=== PATIENT | female | born 1935 | race Caucasian/White ===

== ENCOUNTER → 2023-12-13 18:10 | Outpatient (REF) | payer OTHER, SELFPAY ==
[2023-12-13 20:14] LABS: Urine Albumin Negative (Neg - Trace); Urine Bilirubin Negative (Negative); Urine Character Clear (Clear); Urine Color Yellow; Urine Glucose Negative (Negative); Urine Ketone Negative (Negative); Urine Leukocyte 2+ (Negative); Urine Nitrite Positive (Negative); Urine Occult Blood 1+ (Negative); Urine Urobilinogen Negative (Neg - 1+)
[2023-12-13 20:30] LABS: Urine Calcium Oxalate Crystals Present; Urine Squamous Cell 0-2 /LPF (Few)
[2023-12-13 20:31] LABS: Urine Bacteria Many (Negative); Urine White Cell 80-90 /HPF (0-5)
== END ==
LOC: OLABWHC 18:10
PROVIDERS: ATTENDING PHYSICIAN Internal Medicine Geriatric Medicine
DX: R30.0 Dysuria (principal)
CPT/HCPCS: 81003; 81015; 87086; 87088; 87186

== ENCOUNTER → 2024-01-02 13:20 | Outpatient (REF) | payer OTHER, SELFPAY | LOC: RAD 13:20 | PROVIDERS: ATTENDING PHYSICIAN Physician Assistant Medical; FAMILY PHYSICIAN Physician Assistant | DX: S72.352A Displaced comminuted fracture of shaft of left femur, initial encounter for closed fracture (principal) | CPT/HCPCS: 72190; 73552 ==

== ENCOUNTER → 2024-01-18 10:55 | Outpatient (REF) | payer OTHER, SELFPAY | LOC: RAD 10:55 | PROVIDERS: ATTENDING PHYSICIAN Orthopaedic Surgery Hand Surgery; FAMILY PHYSICIAN Internal Medicine Geriatric Medicine | DX: M19.011 Primary osteoarthritis, right shoulder (principal) | CPT/HCPCS: 73200 ==

== ENCOUNTER → 2024-01-28 09:39 | Outpatient (REF) | payer OTHER, SELFPAY | LOC: RAD 09:39 | PROVIDERS: ATTENDING PHYSICIAN Internal Medicine Critical Care Medicine; FAMILY PHYSICIAN Internal Medicine Geriatric Medicine | DX: J90 Pleural effusion, not elsewhere classified (principal); J92.9 Pleural plaque without asbestos | CPT/HCPCS: 71250 ==

== ENCOUNTER 2024-02-07 06:17 | Inpatient (IN) | payer OTHER, SELFPAY ==
--- NOTE | 2024-01-23 12:43 | CM ---
Patient is scheduled for an elective R Reverse TSA on 02/07/24. Spoke with patient prior to surgery. Introduced role of Orthopedic Navigator. Patient reports that she lives alone in personal care at [facility]. Currently she requires assistance
with bathing and occasionally bed mobility. She ambulates with a rolling walker. She has had VN services. PCP is Dr. Manolo Dillon.
Discussed orthopedic program and post surgical plans. Reviewed anticipated length of stay and assistance that she may need at discharge. Daughter states that patient will need to go to the SNF at [facility] as she will not be able to use her walker and
will need more assistance than personal care can provide.
Patient will complete online education.
Plan: Orthopedic Navigator will be involved in the care of patient after surgery and will reassess discharge needs at that time.
[2024-01-24 13:10] VITALS: BMI 32.1
[2024-01-24 13:38] LABS: Hematocrit 37.6 % (37.0-47.0); Hemoglobin 12.5 g/dL (12.0-16.0); Mean Corp Hgb Conc. 33.2 g/dL (33.0-37.0); Mean Corpuscular Hgb 30.5 pg (27.0-31.0); Mean Corpuscular Volume 91.7 fL (81.0-99.0); Mean Platelet Volume 8.8 fL (7.4-10.4); Platelet Count 258 10^3/uL (130-400); Red Cell Dist. Width 14.9 % (11.5-14.5); White Blood Cell Count 8.7 10^3/uL (4.8-10.8)
[2024-01-24 14:25] LABS: ALT (SGPT) 17 U/L (0-35); AST (SGOT) 24 U/L (14-36); Albumin 4.5 g/dl (3.5-5.0); Alkaline Phosphatase 230 U/L (38-126); Blood Urea Nitrogen 16 mg/dl (7-17); Calcium 10.3 mg/dl (8.4-10.2); Carbon Dioxide 29 mmol/L (22-30); Chloride 101 mmol/L (98-107); Estimated Creatinine Clearance 57 ml/min; Glucose 107 mg/dl (70-99); Potassium 4.2 mmol/L (3.5-5.1); Sodium 137 mmol/L (135-145); Total Bilirubin 0.6 mg/dl (0.2-1.3); Total Protein 7.3 g/dl (6.3-8.2); eGFR > 60.00
[2024-01-24 15:27] VITALS: BMI 32.1
[2024-01-25 09:25] LABS: Glycohemoglobin (HgbA1c) 6.6 % (4.0-5.6)
[2024-02-07] VITALS (16 sets, daily range): BP systolic 94–155; BP diastolic 54–97; PULSE 86; O2SAT 91; BMI 32.1
[2024-02-07 10:22] LABS: Glucose - Point of Care 103 mg/dl (70-99)
[2024-02-07] MEDS: BACTROBAN NASAL 1 GRAM NASAL (10:51)
[2024-02-07] MEDS: TYLENOL 1000 MG PO (10:51)
[2024-02-07] MEDS: NORMOSOL-R 1000 IV (10:53)
--- NOTE | 2024-02-07 11:29 | PTCARENOTE ---
RN spoke to Izabela Warren, Ortho Navigator regarding changing the platform of the walker to the opposite side. Izabela checked with PT and they will be able to to do this. RN communicated this information to the patient's daughter Janis. Janis will bring
the platform walker back to the hospital when her mother is admitted to the Orthopedic unit.
--- NOTE | 2024-02-07 13:57 | PTCARENOTE ---
Patient received from the O.R on simple mask, she verbalized she felt her breathing is Labor. Lung bases with rales bilaterally with left base 1/2 up. Patient now on 4L 94%
[2024-02-07 14:00] LABS: Glucose - Point of Care 146 mg/dl (70-99)
[2024-02-07] MEDS: NOVOLOG FLEXPEN-MODERATE RESISTANCE SC ×2 (14:16)
[2024-02-07] MEDS: LASIX 5 MG IV (14:18)
--- NOTE | 2024-02-07 14:41 | SUR.PHASEI ---
Dr Means updated at 1400 with results of glucose and assess update, rales at right base and 1/3 on left. patient normally talkes lasix - has been on hold. Dr Means came to bedside and lasix 5mg given IV at 1418/
[2024-02-07] MEDS: TYLENOL 650 MG PO ×3 (14:59→20:35)
[2024-02-07] MEDS: TYLENOL PO ×2 (15:58→17:46)
--- NOTE | 2024-02-07 16:06 | SUR.PHASEI ---
pacu addendum - Claudine Sandoval updated with assessment with bilateral rales, no lasix ' for a few days' per patient. Updated to Dr Means's order - will stop IV fluids, comfortable now with O2 on - no pain, sitting in high fowlers.
--- NOTE | 2024-02-07 16:07 | PTCARENOTE ---
1520: Patient arrived to 2 south from PACU. Full head to toe assessment completed. Neurovascular assessment completed on RUE. Scant amount of drainage noted on dressing. Ecchymosis noted to upper inner arm. Patient's RUE in sling non-weightbearing
status maintained. Patient on 4L NC with SpO2 greater than 92%. Fluids capped when patient arrived to floor. Call franks within reach and bed in lowest position. Daughter at bedside. PT/OT at bedside.
[2024-02-07 16:08] LABS: NT-proBNP 184 pg/ml
[2024-02-07 16:40] LABS: Glucose - Point of Care 174 mg/dl (70-99)
[2024-02-07] MEDS: LASIX IV (16:42)
[2024-02-07] MEDS: AMARYL PO (17:15)
[2024-02-07] MEDS: ZOLOFT 50 MG PO (17:33)
[2024-02-07] MEDS: ASPIRIN 325 MG PO (17:33)
[2024-02-07] MEDS: AMARYL 2 MG PO (17:34)
[2024-02-07] MEDS: SYNTHROID PO (17:44)
[2024-02-07] MEDS: NOVOLOG FLEXPEN-MODERATE RESISTANCE 1 UNITS SC (18:08)
[2024-02-07] MEDS: BACTROBAN 2% OINTMENT 1 APPLIC NASAL (20:34)
[2024-02-07] MEDS: ANCEF 5 IV (20:34)
[2024-02-07] MEDS: TORADOL 10 MG IV (20:35)
[2024-02-07] MEDS: NEURONTIN 300 MG PO (20:36)
[2024-02-07] MEDS: LIPITOR 40 MG PO (20:36)
[2024-02-07] MEDS: MELATONIN 3 MG PO (20:36)
[2024-02-07] MEDS: MIRAPEX 0.5 MG PO (20:36)
[2024-02-07] MEDS: FLUSH (NSS) 3 FLUSH IV (20:39)
[2024-02-07] MEDS: SENOKOT PO (20:55)
[2024-02-07] MEDS: COLACE PO (20:55)
[2024-02-07 21:21] LABS: Glucose - Point of Care 280 mg/dl (70-99)
[2024-02-07] MEDS: DILAUDID 4 MG PO (22:29)
[2024-02-07] MEDS: KLONOPIN 0.125 MG PO (22:29)
[2024-02-07] MEDS: ZOFRAN 4 MG IV (23:33)
[2024-02-07] MEDS: FLUSH (NSS) 2 FLUSH IV ×2 (23:33→23:47)
[2024-02-07] MEDS: DILAUDID 0.5 MG IV (23:45)
[2024-02-07] MEDS: FLUSH (NSS) 1 FLUSH IV (23:48)
[2024-02-08] MEDS: TYLENOL PO ×2 (00:34→10:39)
[2024-02-08] MEDS: ANCEF 5 IV (03:07)
[2024-02-08] MEDS: TYLENOL 650 MG PO (03:07)
[2024-02-08 05:53] VITALS: BMI 32.3
--- NOTE | 2024-02-08 06:29 | DOWNTIME ---
There was a [employer] Lead Downtime on 02/08/2024 from 0100 to 02/08/2024 at 0322. Downtime documentation of patient's care, including medication administrations, has been reconciled in the electronic record per guidelines. Refer to the
patient's paper chart under the miscellaneous tab to see printed paper medication records and downtime forms.
[2024-02-08 07:35] VITALS: BP 117/67
[2024-02-08 07:56] LABS: Glucose - Point of Care 173 mg/dl (70-99)
--- NOTE | 2024-02-08 08:23 | CM ---
Reviewed chart and held rounds with PT, OT and nursing. Patient admitted as planned for elective R Reverse TSA. Met with patient at bedside. Confirmed information previously obtained for case management assessment and discussed discharge plans. The
plan is for patient to go to to a SNF for rehab. [facility].
Referral and completed PASRR were sent to [facility] through [employer]. Per Soo in admissions, they have a bed and can accept patient today. [facility] . Attending: Eugenie;
Report: [phone]

Call placed to [facility] to obtain precert; spoke with Tasha. Clinical provided and auth received fro transfer to [facility], skilled level of care 02/07 through 02/13; next review date 02/13; auth# [id number]. Auth for Acute Care to transport via stretcher:
[id number]. Message was left for Soo at [facility] with authorization information.
Medical necessity and transport forms completed.
[2024-02-08] MEDS: ASPIRIN 325 MG PO (08:42)
[2024-02-08] MEDS: AMARYL 2 MG PO (08:42)
[2024-02-08] MEDS: MYRBETRIQ EXTENDED RELEASE 25 MG PO (08:42)
[2024-02-08] MEDS: SENOKOT 17.1999999999999993 MG PO (08:43)
[2024-02-08] MEDS: COLACE 100 MG PO (08:43)
[2024-02-08] MEDS: SYNTHROID 75 MCG PO (08:43)
[2024-02-08] MEDS: ZOLOFT 50 MG PO (08:43)
[2024-02-08] MEDS: TORADOL 10 MG IV (08:44)
[2024-02-08] MEDS: LASIX 20 MG IV (08:45)
[2024-02-08] MEDS: NOVOLOG FLEXPEN-MODERATE RESISTANCE 1 UNITS SC (08:46)
--- NOTE | 2024-02-08 10:47 | W.PN.ORTHO ---
Today's Communication / Plan
-
d/c
Assessment
.
Distal Motor Intact: Yes
Dressing:
Clean, dry and intact.
Plan
.
Surgery / Date: R [place] 02/07/24
Activity:
Out of bed.
PT/OT
Discharge Plan: SNF
Subjective
.
.:
Patient resting comfortably.
Vital Signs and Labs
.
Vital Signs and Labs:
Lab Results
01/24/24 12:45
01/24/24 12:45
Temp Pulse Resp BP Pulse Ox
97.4 F 70 16 117/67 96
02/08/24 07:35 02/08/24 08:45 02/08/24 07:35 02/08/24 08:45 02/08/24 07:35
Non-invasive Hgb result: 12.1
Physical Exam
-
HEENT: No pallor, cyanosis, or jaundice. Throat clear.
NECK: Supple. No JVD.
RESPIRATORY: Lungs clear to auscultation-
CVS: S1, S2 normal. RRR.� No murmur, rub or gallop.
ABDOMEN: Soft, non-tender. No distension. BS+/normal.
EXTREMITIES: strength equal, no calf pain with palpation
CREDIT UNION FIELD EXAMINER: AOx3. No focal deficits. actuarial internship grossly intact
--- NOTE | 2024-02-08 10:48 | W.DS.TRANS ---
DC Summary - Home Connect Lpn
-
Discharge Instructions:
Sleep Apnea Risk Low
Discharge Diagnosis/Procedures R Reverse TSA Dr. Delgado 02/07/24
Diet Diabetic, Carb Controlled
Activity With Walker,With assistance
Additional Activity Fall Precautions-NWB RUE
Driving Restrictions No driving
Blood Work bedside glucose monitoring AC HS
Instructions:
Stand-Alone Forms: Total Shoulder Replacement D/C
Changes to Home Medications: Yes
Discharge Medications:
DC Medications w/original date entered in [employer]
pramipexole 0.25 mg tablet 0.5 mg PO HS Neurological Condition 10/18/18
sertraline 50 mg tablet 50 mg PO DAILY Depression 10/18/18
levothyroxine 75 mcg tablet (Synthroid) 75 mcg PO DAILY Thyroid 06/07/23
amlodipine 2.5 mg tablet 2.5 mg PO DAILY Blood Pressure 08/18/23
aspirin 81 mg chewable tablet 81 mg PO DAILY Blood Clot Prevention/Tx 08/18/23
polyethylene glycol 3350 17 gram oral powder packet (Miralax) 17 g PO DAILY PRN constipation 08/30/23
amoxicillin 500 mg capsule 2,000 mg PO DAILY PRN PRIOR TO DENTAL PROCEDURE 11/01/23
ascorbic acid (vitamin C) 500 mg tablet 500 mg PO BID Supplement 11/01/23
atorvastatin 40 mg tablet 40 mg PO HS High Cholesterol 11/01/23
clonazepam 0.125 mg disintegrating tablet 0.125 mg PO Q8H PRN anxiety 11/01/23
glimepiride 2 mg tablet 2 mg PO DAILY Diabetes 11/01/23
methyl salicylate 15 %-menthol 10 % topical cream (Muscle Rub) 1 applic topical Q6H PRN shoulder pain 11/01/23
potassium chloride 20 mEq oral packet (Klor-Con) 20 meq PO BID Electrolyte Repletion 11/01/23
melatonin 3 mg tablet 3 mg PO HS Sleep 01/24/24
mirabegron 25 mg tablet,extended release 24 hr (Myrbetriq) 25 mg PO DAILY Urinary Issue 01/24/24
xntycocdcnor-yuhbggzc-gmvuqi tablet 1 tab PO DAILY Supplement 01/24/24
mupirocin 2 % topical ointment 1 applic topical BID infection prevention #1 tube 01/24/24
vit C 250 mg-vit E 90 mg-zinc 40 mg-copper 1 bv-gzvqda-walgxn capsule (PreserVision AREDS-2) 1 tab PO BID Supplement 01/24/24
white petrolatum-mineral oil topical cream 1 applic topical BID dry skin 01/24/24
Saccharomyces boulardii 250 mg capsule (Florastor) 250 mg PO BID #1 cap 02/08/24
acetaminophen 325 mg capsule (Tylenol) 650 mg (2 x 325 mg) PO QID #2 caps 02/08/24
aspirin 325 mg tablet 325 mg PO DAILY blood clot prevention #1 tab 02/08/24
docusate sodium 100 mg capsule (Colace) 100 mg PO BID stool softner #1 cap 02/08/24
doxycycline hyclate 100 mg capsule 100 mg PO BID infection prevention #10 caps 02/08/24
furosemide 20 mg tablet (Lasix) 20 mg PO DAILY #1 tab 02/08/24
gabapentin 300 mg capsule 300 mg PO HS sleep/pain #10 caps 02/08/24
hydromorphone 2 mg tablet 2 - 4 mg (1 - 2 x 2 mg) PO Q6H PRN 1 moderate pain, 2 severe #30 tabs 02/08/24
insulin aspart U-100 100 unit/mL (3 mL) subcutaneous pen (Novolog FlexPen U-100 Insulin aspart) 1 sliding scale dose SC DIRECTED #1 mL 02/08/24
magnesium hydroxide 400 mg/5 mL oral suspension (Milk of Magnesia) 30 ml PO HS PRN Constipation #1 mL 02/08/24
sennosides 8.6 mg tablet (Senokot) 17.2 mg (2 x 8.6 mg) PO BID laxative #2 tabs 02/08/24
Home Medication Changes
doxycycline hyclate 100 mg capsule 100 mg PO BID infection prevention #10 caps 02/08/24�
Pending Results: No
[2024-02-08 11:23] LABS: Glucose - Point of Care 224 mg/dl (70-99)
== END 2024-02-08 12:10 | DRG 483 ==
LOC: 2 SOUTH 06:17
PROVIDERS: Physician Assistant Medical; ADMITTING PHYSICIAN Orthopaedic Surgery Hand Surgery; FAMILY PHYSICIAN Internal Medicine Geriatric Medicine
PROC: 0RRJ0JZ Replacement of Right Shoulder Joint with Synthetic Substitute, Open Approach (ICD-10-PCS; 2024-02-07)
DX: M19.011 Primary osteoarthritis, right shoulder (principal); M75.101 Unspecified rotator cuff tear or rupture of right shoulder, not specified as traumatic; Z96.643 Presence of artificial hip joint, bilateral; R26.2 Difficulty in walking, not elsewhere classified
CPT/HCPCS: 36415; 73020; 80053; 82962; 83036; 83880; 85027; 87070; 93005; 97163; 97166; C1713; C1776

== ENCOUNTER → 2024-02-15 10:36 | Outpatient (REF) | payer OTHER, SELFPAY ==
[2024-02-15 11:28] LABS: Hematocrit 32.1 % (37.0-47.0); Hemoglobin 10.1 g/dL (12.0-16.0); Mean Corp Hgb Conc. 31.5 g/dL (33.0-37.0); Mean Corpuscular Hgb 30.6 pg (27.0-31.0); Mean Corpuscular Volume 97.3 fL (81.0-99.0); Mean Platelet Volume 8.8 fL (7.4-10.4); Platelet Count 315 10^3/uL (130-400); Red Cell Dist. Width 15.6 % (11.5-14.5)
[2024-02-15 11:50] LABS: Glycohemoglobin (HgbA1c) 6.5 % (4.0-5.6)
[2024-02-15 12:03] LABS: ALT (SGPT) 18 U/L (0-35); AST (SGOT) 22 U/L (14-36); Albumin 3.6 g/dl (3.5-5.0); Alkaline Phosphatase 172 U/L (38-126); Blood Urea Nitrogen 16 mg/dl (7-17); Calcium 9.4 mg/dl (8.4-10.2); Carbon Dioxide 27 mmol/L (22-30); Chloride 106 mmol/L (98-107); Glucose 121 mg/dl (70-99); Magnesium 1.9 mg/dl (1.6-2.3); Potassium 4.2 mmol/L (3.5-5.1); Sodium 137 mmol/L (135-145); Total Bilirubin 0.7 mg/dl (0.2-1.3); eGFR > 60.00
[2024-02-15 12:17] LABS: Free T4 0.98 ng/dl (0.78-2.19)
[2024-02-15 12:31] LABS: TSH 1.35 uIU/ml (0.47-4.68)
== END ==
LOC: OLABWHC 10:36
PROVIDERS: ATTENDING PHYSICIAN Internal Medicine
DX: I50.33 Acute on chronic diastolic (congestive) heart failure (principal); Z96.611 Presence of right artificial shoulder joint; D64.9 Anemia, unspecified; E11.40 Type 2 diabetes mellitus with diabetic neuropathy, unspecified
CPT/HCPCS: 36415; 80053; 83036; 83735; 84439; 84443; 85027

== ENCOUNTER 2024-03-08 04:37 | Inpatient (IN) | payer OTHER, SELFPAY ==
[2024-03-07 23:40] VITALS: BP 144/77
[2024-03-08] VITALS (9 sets, daily range): BP systolic 120–166; BP diastolic 66–87; PULSE 87–89; O2SAT 97–98; BMI 31.6
--- NOTE | 2024-03-08 00:58 | ED.GENMED ---
History of Present Illness
General
Chief Complaint: Fall
Source: patient
Exam Limitations: none
Time Seen by Provider: 03/08/24 00:50
Nursing documentation reviewed up to this point in time: agreed with
Travel History
Have you had any contact with someone who has COVID-19?: No
Do you have any symptoms of coronavirus? Fever > 100 degrees, chills, cough, shortness of breath, sore throat, loss of taste or smell, muscle aches, or headache?: No
History of Present Illness
History of Present Illness:
Patient is an 89-year-old female with past medical history of CHF hypertension hyperlipidemia arthritis recent shoulder replacement, diabetes from [facility] who presents to the ER for evaluation. Patient apparently had an unwitnessed fall
several hours ago. She tells me she was trying to walk to the bathroom and fell. She reports she has felt very weak and not well for a while. She tells me she wants to sleep all the time. She has had a cough. She denies any shortness of breath.
She did hit the back of her head but denies loss of conscious. She tells me she is not on blood thinners.
Patient is status post right reverse total shoulder arthroplasty February 06
Past History
Past History
ED Past Medical History: COPD, Fibromyalgia, HTN, Hypercholesterolemia, NIDDM, Hypothyroidism, Psychiatric (anxiety), Other (Degenerative osteoarthritis, Migraines, back pain, UTI, Macular degeneration, ) and Other (migraines, mac degeneation, OA)
ED Past Surgical History: Appendectomy, Cholecystectomy, Orthopedic (Left and right knee replacement, Back surgery, right and left total hip replacement. Left leg femur repair), Tonsilectomy and Other (Lymphnode resection of neck. )
Social History
Tobacco: Former smoker
Alcohol: None
Personal:
Living: custodial ([facility])
Review of Systems
Review of Systems
Allergies reviewed?: Yes
Other source history: family and ambulance crew
All Other Systems: ROS reviewed and negative except as documented in HPI and ROS
Constitutional: Reports fatigue
EENT: Reports no symptoms
Respiratory: Reports cough; Denies trouble breathing
Cardiac: Reports no symptoms
ABD/GI: Reports no symptoms
Musculoskeletal: Reports no symptoms
Skin: Reports no symptoms
Neurological: Reports no symptoms
Psychiatric: Reports no symptoms
Phy Exam
General Physical Exam
General Presentation: no apparent distress
General age: appears stated age
General Skin: warm
General Habitus: elderly
General Mental: alert
General Hydration: dry mucous membranes
Cardiovascular Exam
Cardiovascular Exam: regular rate/rhythm, no murmur and normal peripheral pulses
Pulmonary Exam
Pulmonary Exam: lungs clear and other (+ cough )
Neurological Exam
Neurological Exam: alert
Musculoskeletal Exam
Musculoskeletal Exam: full ROM and other (right anterior shoulder with steri strip in place no surrounding erythema )
Skin Exam
Skin Exam: normal color and warm/dry
Psychiatric Exam
Psychiatric Exam: normal mood/affect
Course
Orders/Labs/Results
Orders:
Orders
03/08/24 00:57
Cardiac Monitoring- Treatment ONCE
IV Insert/Care/Rem.- Treatment PRN
Straight cath- Treatment ONCE
03/08/24 00:58
Electrocardiogram (*1) Urgent
Reason for Study: Other
Other Reason for Exam: sepsis
EKG- Treatment ONCE
CR Chest - 2 Views Urgent
Comment:
Reason For Exam: cough
03/08/24 02:15
COVID-19 Antigen Urgent
Source: Nasal Swab
Complete Blood Count/With Diff Urgent
Comprehensive Metabolic Panel Urgent
Influenza A+B Rapid Molecular Urgent
ELAINE Source: Nasal Swab
Specimen Description:
03/08/24 02:30
CT Head W/o Iv Contrast Urgent
Comment:
Reason For Exam: unwitnessed fall
03/08/24 02:40
Lactic Acid Q4H
Comment: CANCEL 2nd LACTIC ACID IF 1st LACTIC ACID IS LESS THAN 2
Blood Culture Q30M
ELAINE Source: Blood/Venous
Specimen Description:
Blood Culture Q30M
ELAINE Source: Blood/Venous
Specimen Description:
03/08/24 03:17
0.9% Sodium Chloride 1000 ml [Nss] 1,000 ml IV Wide Open mls/hr
03/08/24 04:03
Admit/Transfer Patient As Directed
Co-Sign Provider:
Level of Care: Inpatient admission
Assign to:: Medical/Surgical
Physician / Group: doug
Diagnosis: uti
Reason for Hospitalization: uti
Expected length of stay greater than two midnights?: Yes
ELOS- Estimated Length of Stay in days: 2
I certify the patient meets the requirements for IP care: Yes
03/08/24 04:04
Code Status As Directed
Resuscitation Status: Do not resuscitate
Reached after discussion with pt or family/Healthcare POA: Yes
DNR Bracelet Application ONCE
03/08/24 06:00
Levothyroxine [Synthroid] 75 mcg PO DAILY @ 0600
03/08/24 06:24
Clonazepam [Klonopin] 0.125 mg PO Q8H PRN
Dextrose 50%-Water [Dextrose 50% Syringe] 12.5 grams IV [id number] PRN
Glucagon [GlucaGen] 1 mg IM PRN PRN
Magnesium Hydroxide [Milk of Magnesia] 30 ml PO HS PRN
Polyethylene Glycol Powder [Miralax] 17 grams PO DAILY PRN
03/08/24 06:24
Activity As Directed
Activity Level: As Tolerated
Bedside Glucose Monitoring As Directed
Frequency: AC&HS
Additional Instructions:: Change to q6h if pt on TPN, tube feeding or not eating
Vital Signs As Directed
Frequency: Per unit guidelines
DX Deep Vein Thrombosis Video Routine
03/08/24 07:00
CefTRIAXone [Rocephin] 1,000 mg IV Q24H
03/08/24 07:30
Insulin Aspart Corrective Low [Novolog Flexpen-Low Resistance] See Protocol SC AC
03/08/24 08:00
Acetaminophen [Tylenol] 650 mg PO QID
Amlodipine [Norvasc] 2.5 mg PO DAILY
Ascorbic Acid [Vitamin C] 500 mg PO BID
Aspirin Chewable [Low Strength Aspirin] 81 mg PO DAILY
Docusate Sodium [Colace] 100 mg PO BID
Heparin 5,000 units SC Q12
Multivitamin [Theragran] 1 tablet PO DAILY
Petrolatum/Mineral Oil [Hydrophor] 1 applic TOPICAL BID
Saccharomyces Boulardii [Florastor] 250 mg PO BID
Sennosides [Senokot] 17.2 mg PO BID
Sertraline HCl [Zoloft] 50 mg PO DAILY
Vit C/Vit E/Lutein/Min/[place]-3 [Ocuvite Softgel] 1 cap PO BID
03/08/24 10:16
Urinalysis Reflex To Culture Urgent
Comment: RECOLLECT
Urine Microscopic Reflex Cult Urgent
Urine Culture Urgent
ELAINE Source: U
Specimen Description:
Obtained by: Random
03/08/24 22:00
Atorvastatin [Lipitor] 40 mg PO HS
Gabapentin [Neurontin] 300 mg PO HS
Pramipexole [Mirapex] 0.5 mg PO HS
03/09/24 06:00
Complete Blood Count/With Diff IN AM
Comprehensive Metabolic Panel IN AM
Glycohemoglobin (HgbA1c) IN AM
Abnormal Lab Results
03/08/24
02:15
WBC 11.0 H 10^3/uL
(4.8-10.8)
RBC 3.58 L 10^6/uL
(4.20-5.40)
Hgb 11.0 L g/dL
(12.0-16.0)
Hct 32.7 L %
(37.0-47.0)
Abs Immat Gran (auto) 0.2 H 10^3/uL
(0-0.05)
Absolute Neuts (auto) 8.3 H 10^3/uL
(1.4-6.5)
Absolute Monos (auto) 1.1 H 10^3/uL
(0.1-0.6)
Immature Gran % 1.4 H %
(0-0.5)
Neutrophils % 75.7 H %
(42.2-75.2)
Lymphocytes % 11.6 L %
(20.5-51.1)
Monocytes % 10.2 H %
(1.7-9.3)
Sodium 132 L mmol/L
(135-145)
Chloride 95 L mmol/L
(98-107)
BUN 18 H mg/dl
(7-17)
Creatinine 0.4 L mg/dL
(0.6-1.0)
Glucose 133 H mg/dl
(70-99)
AST 43 H U/L
(14-36)
ALT 39 H U/L
(0-35)
Alkaline Phosphatase 263 H U/L
(38-126)
03/08/24 02:15
03/08/24 02:15
Vital Signs
Initial and Last Documented VS:
Initial Vital Signs
Temp Pulse Resp BP Pulse Ox
98.4 F 95 18 144/77 87
03/07/24 23:40 03/07/24 23:40 03/07/24 23:40 03/07/24 23:40 03/07/24 23:40
Last Documented Vital Signs
Temp Pulse Resp BP Pulse Ox
97.4 F 86 20 132/82 96
03/08/24 13:13 03/08/24 13:13 03/08/24 13:13 03/08/24 13:13 03/08/24 13:13
Research Associate Molecular Biology consulted with Physician
Research Associate Molecular Biology consulted with physician?: Yes
Name of Physician Consulted: Jignesh
MDM/Problems Addressed
Differential Diagnosis Includes:
Not limited to UTI weakness head injury
MDM/Problems Addressed:
As per daughter Pt normally lives at [facility], was in Rehab after right shoulder replacement , now back in personal chair at [facility]. Daughter reports pt has gotten progressively weaker over past several days. had cough had recent clear Chest
xray but was found to have UTI by urology and placed on Macrobid.
Patient is awake alert. She is able to give history she tells me she has not felt good in a while has had a cough. Denies any head injury no acute findings on CT head patient with clear lungs not hypoxic however audible cough no acute findings on
chest x-ray. White count : 11.0 stable hemoglobin; 18 creatinine 0.4, will check urine however will require admission for weakness frequent fall
*Critical Care Note
Total Time (30-74mins, 75-104mins- exclusive of procedures): Not Applicable
ED Attending Note
-
Portions of this chart may have been created with voice recognition software.� Occasional wrong word or��sound alike� substitutions may have occurred due to the inherent limitations of voice recognition software.
Discharge Plan
Departure
Patient Disposition: Admit
Date of Disposition: 03/08/24
Time of Disposition: 03:24
Admit to: Med/Surg
Admit to doctor: hospitalist
Presentation/result/management discussed w/ accepting MD/DO: Hospitalist
Patient with high blood pressure during this ER visit?: No
Condition: Fair
Covid-19: Negative COVID-19
Discharge Problem:
Weakness
Interventions
Interventions:
*Risk Screen - Suicide Last Done: 03/07/24 23:40
*General Assessment Last Done: 03/07/24 23:40
*Neglect/Abuse Screening Last Done: 03/07/24 23:40
ED- Fall Risk Assessment Last Done: 03/08/24 03:21
*ED COVID-19 Vaccine History Last Done: 03/07/24 23:40
*Nursing Disposition Last Done: 03/08/24 12:59
ED-Musculoskeletal Assessment Last Done: 03/08/24 03:23
ED- Neurological Assessment Last Done: 03/08/24 03:22
ED-Skin Assessment Last Done: 03/08/24 03:21
Discharge Date and Time
Discharge Date/Time: 03/08/24 12:59
[2024-03-08 02:21] LABS: % Basophils 0.5 % (0-2); % Eosinophils 0.6 % (0-6); % Immature Granulocytes 1.4 % (0-0.5); % Lymphocytes 11.6 % (20.5-51.1); % Monocytes 10.2 % (1.7-9.3); % Neutrophils 75.7 % (42.2-75.2); Absolute Basophils 0.1 10^3/uL (0-0.2); Absolute Eosinophils 0.1 10^3/uL (0-0.7); Absolute Immature Granulocytes 0.2 10^3/uL (0-0.05); Absolute Lymphocytes 1.3 10^3/uL (1.2-3.4); Absolute Monocytes 1.1 10^3/uL (0.1-0.6); Absolute Neutrophils 8.3 10^3/uL (1.4-6.5); Hematocrit 32.7 % (37.0-47.0); Mean Corp Hgb Conc. 33.6 g/dL (33.0-37.0); Mean Corpuscular Hgb 30.7 pg (27.0-31.0); Mean Corpuscular Volume 91.3 fL (81.0-99.0); Mean Platelet Volume 8.8 fL (7.4-10.4); Nucleated Red Blood Cells % 0 %; Platelet Count 324 10^3/uL (130-400); Red Blood Cell Count 3.58 10^6/uL (4.20-5.40); Red Cell Dist. Width 14.3 % (11.5-14.5)
[2024-03-08 02:33] LABS: ALT (SGPT) 39 U/L (0-35); AST (SGOT) 43 U/L (14-36); Albumin 3.9 g/dl (3.5-5.0); Alkaline Phosphatase 263 U/L (38-126); Blood Urea Nitrogen 18 mg/dl (7-17); Calcium 9.9 mg/dl (8.4-10.2); Carbon Dioxide 24 mmol/L (22-30); Chloride 95 mmol/L (98-107); Glucose 133 mg/dl (70-99); Potassium 3.6 mmol/L (3.5-5.1); Sodium 132 mmol/L (135-145); Total Bilirubin 0.6 mg/dl (0.2-1.3); Total Protein 6.8 g/dl (6.3-8.2); eGFR > 60.00
[2024-03-08 02:41] LABS: COVID-19 Antigen Negative (Negative)
[2024-03-08 03:03] LABS: Lactic Acid 0.9 mmol/L (0.7-2.0)
[2024-03-08] MEDS: NSS 1000 IV (03:32)
--- NOTE | 2024-03-08 04:06 | HPS.HSE ---
Family Physician
-
Family Physician: Manolo Dillon
Chief Complaint
-
weakness
History of Present Illness
89-year-old female past medical history of HFpEF, pericardial effusion, hypertension, hyperlipidemia, diabetes, diabetic neuropathy, macular degeneration, hypothyroidism, recurrent pleural effusion, osteoarthritis, obesity, fibromyalgia, restless
leg syndrome, anxiety, migraines presenting from [facility] for unwitnessed fall several hours ago. She was tried to walk to the bathroom and fell. She did hit the back of her head but denies loss of consciousness. She has been feeling very
weak and wants to sleep. She has been complaining of urinary frequency for the past few days and saw her urologist who prescribed her Macrobid which she started taking yesterday. She usually gets some diarrhea after taking antibiotic which
happened yesterday.
She has a cough which she has had for few weeks. Denies any shortness of breath. Denies any chest pain.
She sometimes uses oxygen at home but not very frequently.
She denies smoking or alcohol use.
Medical History
Past Medical History
Past Medical History: Reports Other (HFpEF, pericardial effusion, hypertension, hyperlipidemia, diabetes, diabetic neuropathy, macular degeneration, hypothyroidism, recurrent pleural effusion, osteoarthritis, obesity, fibromyalgia, restless leg
syndrome, anxiety, migraines)
Past Surgical History: Reports Other (Left total hip arthroplasty, right total hip arthroplasty, left femur fracture ORIF, right total knee arthroplasty, cholecystectomy, left total knee arthroplasty, appendectomy, lumbar surgery, lymph node
dissection of neck, right wrist fracture repair)
Social History
Tobacco: Non-smoker
Alcohol: None
Drug: None
Family History
Family History: Not pertinent
Allergies / Home Medications
Allergies reflects when Allergies were last updated in [facility].
Home Medications with original date entered in [facility]
Allergy/Medication List:
Allergies
Allergy/AdvReac Type Severity Reaction Status Date / Time
morphine Allergy Unknown Unknown Verified 02/07/24 10:11
amoxicillin [From Augmentin] Allergy Unknown Verified 02/07/24 10:11
clavulanic acid Allergy Unknown Verified 02/07/24 10:11
[From Augmentin]
risedronate sodium Allergy Unknown Verified 02/07/24 10:11
[From Actonel]
Sulfa (Sulfonamide Allergy Rash, Verified 02/07/24 10:11
Antibiotics) itching
Home Medications
pramipexole 0.25 mg tablet 0.5 mg PO HS Neurological Condition 10/18/18
sertraline 50 mg tablet 50 mg PO DAILY Depression 10/18/18
levothyroxine 75 mcg tablet (Synthroid) 75 mcg PO DAILY Thyroid 06/07/23
amlodipine 2.5 mg tablet 2.5 mg PO DAILY Blood Pressure 08/18/23
aspirin 81 mg chewable tablet 81 mg PO DAILY Blood Clot Prevention/Tx 08/18/23
polyethylene glycol 3350 17 gram oral powder packet (Miralax) 17 g PO DAILY PRN constipation 08/30/23
amoxicillin 500 mg capsule 2,000 mg PO DAILY PRN PRIOR TO DENTAL PROCEDURE 11/01/23
ascorbic acid (vitamin C) 500 mg tablet 500 mg PO BID Supplement 11/01/23
atorvastatin 40 mg tablet 40 mg PO HS High Cholesterol 11/01/23
clonazepam 0.125 mg disintegrating tablet 0.125 mg PO Q8H PRN anxiety 11/01/23
glimepiride 2 mg tablet 2 mg PO DAILY Diabetes 11/01/23
methyl salicylate 15 %-menthol 10 % topical cream (Muscle Rub) 1 applic topical Q6H PRN shoulder pain 11/01/23
potassium chloride 20 mEq oral packet (Klor-Con) 20 meq PO BID Electrolyte Repletion 11/01/23
melatonin 3 mg tablet 3 mg PO HS Sleep 01/24/24
mirabegron 25 mg tablet,extended release 24 hr (Myrbetriq) 25 mg PO DAILY Urinary Issue 01/24/24
rreftiehbkqt-ywyuuxeb-gzpkkw tablet 1 tab PO DAILY Supplement 01/24/24
mupirocin 2 % topical ointment 1 applic topical BID infection prevention #1 tube 01/24/24
vit C 250 mg-vit E 90 mg-zinc 40 mg-copper 1 lz-pftvly-hjjejl capsule (PreserVision AREDS-2) 1 tab PO BID Supplement 01/24/24
white petrolatum-mineral oil topical cream 1 applic topical BID dry skin 01/24/24
Saccharomyces boulardii 250 mg capsule (Florastor) 250 mg PO BID #1 cap 02/08/24
acetaminophen 325 mg capsule (Tylenol) 650 mg (2 x 325 mg) PO QID #2 caps 02/08/24
aspirin 325 mg tablet 325 mg PO DAILY blood clot prevention #1 tab 02/08/24
docusate sodium 100 mg capsule (Colace) 100 mg PO BID stool softner #1 cap 02/08/24
doxycycline hyclate 100 mg capsule 100 mg PO BID infection prevention #10 caps 02/08/24
furosemide 20 mg tablet (Lasix) 20 mg PO DAILY #1 tab 02/08/24
gabapentin 300 mg capsule 300 mg PO HS sleep/pain #10 caps 02/08/24
hydromorphone 2 mg tablet 2 - 4 mg (1 - 2 x 2 mg) PO Q6H PRN 1 moderate pain, 2 severe #30 tabs 02/08/24
insulin aspart U-100 100 unit/mL (3 mL) subcutaneous pen (Novolog FlexPen U-100 Insulin aspart) 1 sliding scale dose SC DIRECTED #1 mL 02/08/24
magnesium hydroxide 400 mg/5 mL oral suspension (Milk of Magnesia) 30 ml PO HS PRN Constipation #1 mL 02/08/24
sennosides 8.6 mg tablet (Senokot) 17.2 mg (2 x 8.6 mg) PO BID laxative #2 tabs 02/08/24
Review of Systems
-
History Source: Patient
A 12 point ROS was completed and negative except as noted: Yes
Constitutional: Reports No Symptoms
EENT: Reports No Symptoms
Respiratory: Reports No Symptoms
Cardiac: Reports No Symptoms
Abdomen/GI: Reports No Symptoms
: Reports No Symptoms
Musculoskeletal: Reports No Symptoms
Skin: Reports No Symptoms
Neurological: Reports No Symptoms
Endocrine: Reports No Symptoms
Hematologic/Lymphatic: Reports No Symptoms
Psych: Reports No Symptoms
Physical Exam
Vital Signs
Vital Signs
Temp Pulse Resp BP Pulse Ox
98.4 F 90 23 156/79 94
03/07/24 23:40 03/08/24 03:30 03/08/24 03:30 03/08/24 02:00 03/08/24 03:30
Physical Exam
General: Well Developed, Well Nourished and No Apparent Distress
HEENT: NormoCephalic, Moist mucous membranes and Atraumatic
Respiratory: Clear
Cardiac: S1/S2 and Regular Rhythm; No Murmur or Rub
GI: Soft, Non Tender, Non Distended and Normal Bowel Sounds; No Organomegaly
Rectal: Deferred by Provider
Musculoskeletal: No Clubbing, No Cyanosis and No Edema
Skin: No Rash
Neuro: Nonfocal/grossly intact
Laboratory Results
-
03/08/24 02:15
03/08/24 02:15
Laboratory Results
Lactic Acid 0.9 mmol/L (0.7-2.0) 03/08/24 02:40
Lactic Acid Cancelled 03/08/24 02:40
Total Bilirubin 0.6 mg/dl (0.2-1.3) 03/08/24 02:15
AST 43 U/L (14-36) H 03/08/24 02:15
ALT 39 U/L (0-35) H 03/08/24 02:15
Alkaline Phosphatase 263 U/L (38-126) H 03/08/24 02:15
Data Reviewed
-
Lab Data: Labs Reviewed by me
Old Records: Reviewed
Impression/Plan
-
IMPRESSION:
PLAN:
# Weakness likely secondary to UTI
-Leukocytosis
-Chest x-ray does not show any acute abnormality, report pending
-COVID and influenza negative
-CT head negative
-IV fluids given
-UA pending
-Ceftriaxone
# Subacute cough
-Possibly postnasal drip related
- chest x-ray report pending
Chronic HFpEF
-Hold Lasix
History of pericardial effusion
History of recurrent pleural effusion
Essential hypertension
-Continue amlodipine
Hyperlipidemia
-Continue statin
Type 2 diabetes
-Hold glimepiride
-Insulin sliding scale
Diabetic neuropathy
Macular degeneration
Hypothyroidism
-Continue levothyroxine
Osteoarthritis
Obesity
Fibromyalgia
Restless leg syndrome
-Continue gabapentin, pramipexole
Anxiety
-Continue clonazepam, sertraline
Migraine history
Constipation
-Continue bowel regimen
DNR/DNI
DVT prophylaxis�heparin
Regular diet
[2024-03-08] MEDS: SYNTHROID 75 MCG PO (08:23)
--- NOTE | 2024-03-08 08:34 | W.PN.HOSP.TC ---
Today's Communication/Plan
-
PT/OT
await cultures
cont rocephin for now
Assessment / Plan
Assessment / Plan
pt is an 89 year old female
Weakness (with fall) likely secondary to UTI--started on Macrobid by urology--UA may be negative if already on ABX--WBC 11K--await cultures--cont rocephin for now--await formal read of CXR--covid/flu negative--await formal head CT read
Subacute cough--likely cause for doxycycline on med list--chest x-ray report pending
Chronic HFpEF without exacerbation--pro BNP not done in ED--resume lasix
History of pericardial effusion/History of recurrent pleural effusion
Essential hypertension--Continue amlodipine
Hyperlipidemia--Continue statin
Type 2 diabetes with neuropathy--cont glimepiride--Insulin sliding scale
Macular degeneration
Hypothyroidism--Continue levothyroxine
Osteoarthritis
Obesity--affects all aspects of care
Fibromyalgia/Restless leg syndrome--Continue gabapentin, pramipexole
Anxiety--Continue clonazepam, sertraline
Constipation--Continue bowel regimen
code status --DNR/DNI
DVT prophylaxis�heparin
Anticipated Discharge: 24 - 48 hours
Subjective/Interval History
-
Date of Service: March 08, 2024
pt feels weak--said she fell in her apartment
Objective Data
-
Labs:
Laboratory Results
03/08/24
02:15
WBC 11.0 H
Hgb 11.0 L
Hct 32.7 L
Plt Count 324
Sodium 132 L
Potassium 3.6
Chloride 95 L
Carbon Dioxide 24
BUN 18 H
Creatinine 0.4 L
Glucose 133 H
Calcium 9.9
Total Bilirubin 0.6
AST 43 H
ALT 39 H
Alkaline Phosphatase 263 H
Vital Signs:
max temp for 24 hours
03/07/24
23:40
Temp 98.4 F
Vital Signs
Temp Pulse Resp BP Pulse Ox
98.4 F 90 23 156/79 94
03/07/24 23:40 03/08/24 03:30 03/08/24 03:30 03/08/24 02:00 03/08/24 03:30
Review of Systems
-
All other systems: Reviewed and negative
Constitutional: Reports Fatigue
Physical Exam
-
General: Well Developed, Well Nourished and No Apparent Distress
HEENT: Normocephalic and Atraumatic; Negative Oxygen
Respiratory: Rhonchi (at bases bilaterallt)
Cardiac: Regular Rhythm and S1/S2; Negative Murmur
GI: Soft, Nontender, Nondistended and Normal Bowel Sounds
Musculoskeletal: No Clubbing, No Cyanosis and No Edema
Neuro: Awake and Alert
Psych: Calm
--- NOTE | 2024-03-08 08:49 | PHANOTE ---
med rec note- called [facility] to clarify insulin patient order at group home Humalog and NovoLog on 03/07/24, group home personal care stated that patient only been getting NovoLog and patient was transfer from [facility] that day and that department
has a different formulary and may been getting Humalog
[2024-03-08] MEDS: LOW STRENGTH ASPIRIN 81 MG PO (09:12)
[2024-03-08] MEDS: SENOKOT 17.1999999999999993 MG PO (09:12)
[2024-03-08] MEDS: ZOLOFT 50 MG PO (09:12)
[2024-03-08] MEDS: OCUVITE SOFTGEL 1 CAP PO ×2 (09:12→20:38)
[2024-03-08] MEDS: COLACE 100 MG PO (09:12)
[2024-03-08] MEDS: ROCEPHIN 1000 MG IV (09:12)
[2024-03-08] MEDS: TYLENOL 650 MG PO (09:12)
[2024-03-08] MEDS: STERILE WATER FOR INJECTION 10 ML IV (09:12)
[2024-03-08] MEDS: HEPARIN 5000 UNITS SC ×2 (09:13→20:37)
[2024-03-08] MEDS: VITAMIN C 500 MG PO ×2 (09:13→20:38)
[2024-03-08] MEDS: NORVASC 2.5 MG PO (09:13)
[2024-03-08 09:26] LABS: Glucose - Point of Care 140 mg/dl (70-99)
[2024-03-08] MEDS: KLOR-CON 20 MEQ PO ×2 (10:21→20:40)
[2024-03-08] MEDS: LASIX 20 MG PO (10:22)
[2024-03-08] MEDS: AMARYL 2 MG PO (10:22)
[2024-03-08 10:24] LABS: Urine Albumin 1+ (Neg - Trace); Urine Bilirubin Negative (Negative); Urine Character Slightly Cloudy (Clear); Urine Color Yellow; Urine Glucose Negative (Negative); Urine Ketone 3+ (Negative); Urine Leukocyte 2+ (Negative); Urine Nitrite Negative (Negative); Urine Occult Blood 4+ (Negative); Urine Specific Gravity 1.015 (<1.030); Urine Urobilinogen Negative (Neg - 1+)
[2024-03-08] MEDS: THERAGRAN PO (10:25)
[2024-03-08] MEDS: HYDROPHOR TOPICAL ×2 (10:25→20:40)
[2024-03-08] MEDS: FLORASTOR PO (10:25)
[2024-03-08 10:35] LABS: Urine Red Blood Cell 16-20 /HPF (0-2); Urine White Cell 40-50 /HPF (0-5)
[2024-03-08 10:36] LABS: Urine Bacteria Moderate (Negative)
[2024-03-08] MEDS: FLORASTOR 250 MG PO ×2 (11:19→20:37)
[2024-03-08 12:34] LABS: Glucose - Point of Care 139 mg/dl (70-99)
[2024-03-08] MEDS: TYLENOL PO ×4 (13:00→20:40)
[2024-03-08] MEDS: NOVOLOG FLEXPEN-MODERATE RESISTANCE SC ×2 (13:01→17:11)
[2024-03-08 16:59] LABS: Glucose - Point of Care 153 mg/dl (70-99)
[2024-03-08] MEDS: COLACE PO (20:35)
[2024-03-08] MEDS: SENOKOT PO (20:35)
[2024-03-08] MEDS: NEURONTIN 300 MG PO (20:38)
[2024-03-08] MEDS: MIRAPEX 0.5 MG PO (20:39)
[2024-03-08] MEDS: LIPITOR 40 MG PO (20:39)
[2024-03-08 21:22] LABS: Glucose - Point of Care 180 mg/dl (70-99)
[2024-03-09] MEDS: STERILE WATER FOR INJECTION 10 ML IV (06:28)
[2024-03-09] MEDS: SYNTHROID 75 MCG PO (06:28)
[2024-03-09] MEDS: ROCEPHIN 1000 MG IV (06:28)
[2024-03-09 07:09] LABS: % Basophils 0.8 % (0-2); % Eosinophils 4.2 % (0-6); % Immature Granulocytes 1.2 % (0-0.5); % Lymphocytes 12.7 % (20.5-51.1); % Monocytes 9.8 % (1.7-9.3); % Neutrophils 71.3 % (42.2-75.2); Absolute Basophils 0.1 10^3/uL (0-0.2); Absolute Eosinophils 0.4 10^3/uL (0-0.7); Absolute Immature Granulocytes 0.1 10^3/uL (0-0.05); Absolute Lymphocytes 1.2 10^3/uL (1.2-3.4); Absolute Monocytes 0.9 10^3/uL (0.1-0.6); Absolute Neutrophils 6.5 10^3/uL (1.4-6.5); Hematocrit 34.1 % (37.0-47.0); Hemoglobin 10.9 g/dL (12.0-16.0); Mean Corpuscular Hgb 30.3 pg (27.0-31.0); Mean Corpuscular Volume 94.7 fL (81.0-99.0); Mean Platelet Volume 8.3 fL (7.4-10.4); Nucleated Red Blood Cells % 0 %; Platelet Count 309 10^3/uL (130-400); Red Cell Dist. Width 14.3 % (11.5-14.5); White Blood Cell Count 9.2 10^3/uL (4.8-10.8)
[2024-03-09 07:30] VITALS: BP 155/87
[2024-03-09 07:48] LABS: ALT (SGPT) 42 U/L (0-35); AST (SGOT) 43 U/L (14-36); Albumin 3.7 g/dl (3.5-5.0); Alkaline Phosphatase 248 U/L (38-126); Blood Urea Nitrogen 15 mg/dl (7-17); Calcium 9.6 mg/dl (8.4-10.2); Carbon Dioxide 29 mmol/L (22-30); Chloride 99 mmol/L (98-107); Estimated Creatinine Clearance 55 ml/min; Glucose 126 mg/dl (70-99); Potassium 3.4 mmol/L (3.5-5.1); Sodium 135 mmol/L (135-145); Total Bilirubin 0.4 mg/dl (0.2-1.3); Total Protein 6.7 g/dl (6.3-8.2); eGFR > 60.00
[2024-03-09] MEDS: FLORASTOR 250 MG PO ×2 (07:53→20:26)
[2024-03-09] MEDS: VITAMIN C 500 MG PO ×2 (07:54→20:27)
[2024-03-09] MEDS: OCUVITE SOFTGEL 1 CAP PO ×2 (07:54→20:27)
[2024-03-09] MEDS: THERAGRAN 1 TABLET PO (07:55)
[2024-03-09] MEDS: LASIX 20 MG PO (07:55)
[2024-03-09] MEDS: LOW STRENGTH ASPIRIN 81 MG PO (07:55)
[2024-03-09] MEDS: NORVASC 2.5 MG PO (07:56)
[2024-03-09] MEDS: AMARYL 2 MG PO (07:56)
[2024-03-09] MEDS: COLACE 100 MG PO (07:56)
[2024-03-09] MEDS: ZOLOFT 50 MG PO (07:56)
[2024-03-09] MEDS: TYLENOL 650 MG PO ×2 (07:57→20:26)
[2024-03-09] MEDS: HYDROPHOR 1 APPLIC TOPICAL (07:58)
[2024-03-09] MEDS: SENOKOT 17.1999999999999993 MG PO (07:58)
[2024-03-09] MEDS: KLOR-CON 20 MEQ PO ×2 (07:59→20:27)
[2024-03-09] MEDS: HEPARIN 5000 UNITS SC ×2 (07:59→20:27)
[2024-03-09 08:10] LABS: Glucose - Point of Care 136 mg/dl (70-99)
[2024-03-09] MEDS: NOVOLOG FLEXPEN-MODERATE RESISTANCE SC ×2 (08:11→12:30)
[2024-03-09 09:02] VITALS: BP 155/87
--- NOTE | 2024-03-09 11:38 | W.PN.HOSP.TC ---
Today's Communication/Plan
-
cont rocephin
repeat blood cultures until neg
stop stool softeners
Assessment / Plan
Assessment / Plan
pt is an 89 year old female
Weakness (with fall) likely secondary to Proteus UTI with bacteremia--started on Macrobid by urology---WBC 11K, improved----cont rocephin--covid/flu negative--repeat blood cultures until clear
Subacute cough--likely cause for doxycycline on med list--chest x-ray report WNL--add robitussin
Chronic HFpEF without exacerbation--pro BNP not done in ED--resume lasix
History of pericardial effusion/History of recurrent pleural effusion
Essential hypertension--Continue amlodipine
Hyperlipidemia--Continue statin
Type 2 diabetes with neuropathy--cont glimepiride--Insulin sliding scale
Macular degeneration
Hypothyroidism--Continue levothyroxine
Osteoarthritis
Obesity--affects all aspects of care
Fibromyalgia/Restless leg syndrome--Continue gabapentin, pramipexole
Anxiety--Continue clonazepam, sertraline
Constipation--Continue bowel regimen
code status --DNR/DNI
DVT prophylaxis�heparin
Anticipated Discharge: > 48 hours
Subjective/Interval History
-
Date of Service: March 09, 2024
pt c/o cough
Objective Data
-
Labs:
Laboratory Results
03/09/24
06:40
WBC 9.2
Hgb 10.9 L
Hct 34.1 L
Plt Count 309
Sodium 135
Potassium 3.4 L
Chloride 99
Carbon Dioxide 29
BUN 15
Creatinine 0.3 L
Glucose 126 H
Calcium 9.6
Total Bilirubin 0.4
AST 43 H
ALT 42 H
Alkaline Phosphatase 248 H
Vital Signs:
max temp for 24 hours
03/08/24
18:30
Temp 98.4 F
Vital Signs
Temp Pulse Resp BP Pulse Ox
97.4 F 87 18 155/87 97
03/09/24 07:30 03/09/24 07:30 03/09/24 07:30 03/09/24 07:30 03/09/24 07:55
I&O
03/08/24 03/09/24 03/10/24
06:59 06:59 06:59
Intake Total 600 / 600
Balance 600 / 600
Review of Systems
-
All other systems: Reviewed and negative
Respiratory: Reports Cough
Physical Exam
-
General: Well Developed, Well Nourished and No Apparent Distress
HEENT: Normocephalic and Atraumatic
Respiratory: Wheezes (cough)
Cardiac: Regular Rhythm and S1/S2; Negative Murmur
GI: Soft, Nontender, Nondistended and Normal Bowel Sounds
Musculoskeletal: No Clubbing, No Cyanosis and No Edema
Skin: Warm
Neuro: Awake
[2024-03-09 12:02] LABS: Glucose - Point of Care 162 mg/dl (70-99)
--- NOTE | 2024-03-09 12:14 | PN.CDI ---
Addendum entered and electronically signed by Mary Brown MD 03/09/24 12:35:
documentation complete
Original Note:
CDI
- -
CDI:
Physician Documentation Request
Admit Date: 03/08/24 04:37
Dear Doctor Kevin,
Clinical Indicators:
Patient admitted with weakness.
03/09 PN, 'Proteus UTI with bacteremia'
HR/RR trend on admission:
03/07/24
23:57 03/08/24
00:45 03/08/24
01:00
Pulse 92 91 93
Resp Rate 23 24
03/08/24
01:30 03/08/24
01:45 03/08/24
02:45
Pulse 92 91 93
Resp Rate 22 24 25
03/08/24
03:15 03/08/24
03:30
Pulse 91 90
Resp Rate 23 23
Please clarify which of the following most accurately describes the status of the patient's infection:
Sepsis, POA
- Systemic manifestations of infection, with 2 or more SIRS criteria which include:
- Fever >100.4 degrees F or hypothermia < 96.8 degrees F
- Leukocytosis - WBC > 12,000 or leukopenia - WBC < 4,000 or > 10% bands
- Tachycardia > 90 beats per minute
- Tachypnea - RR > 20 breaths per minute or PaCO2 , 32mmHg
Source: Merck Manual 2013.
Proteus UTI with bacteremia only
Other, please specify
Use of terms such as suspected, likely, concern for, or probable (associated with a specific diagnosis that is being evaluated, monitored, or treated as if it exists) are acceptable and can be coded in the inpatient setting, when documented at the
time of discharge.
Thank you,
Liat Zuleta RN
CDI Specialist
available via tiger text
Please use your independent medical judgment in providing your response.
[2024-03-09] MEDS: TYLENOL PO ×2 (12:31→17:16)
[2024-03-09 15:00] VITALS: BP 146/92
--- NOTE | 2024-03-09 15:30 | CM ---
Patient seen bedside, initial assessment completed. Patient reports she resides at [facility] and typically uses a walker to ambulate. Patient PCP Dr. Dillon, pharmacy [facility] in [place]. CM discussed PT/OT
recommendation of SNF, patient reports she would prefer to go to her apartment and not rehab if at all possible. CM spoke with Soo from [facility], will not have any rehab beds this weekend, instructed to follow up on Tuesday.
CM placed call to [facility], requesting a call back regarding patients PLOF.
CM will continue to follow for discharge planning needs.
Plan; PT/OT rec SNF, [facility] will not have rehab beds until next week. Patient would like to return home to , awaiting return call from nurse to obtain patients PLOF.
[2024-03-09 17:16] LABS: Glucose - Point of Care 170 mg/dl (70-99)
[2024-03-09] MEDS: NOVOLOG FLEXPEN-MODERATE RESISTANCE 1 UNITS SC (17:45)
[2024-03-09] MEDS: SAFETUSSIN DM (SUGAR/ALCOHOL FREE) 100 MG PO (17:46)
[2024-03-09] MEDS: NEURONTIN 300 MG PO (20:27)
[2024-03-09] MEDS: LIPITOR 40 MG PO (20:27)
[2024-03-09] MEDS: MIRAPEX 0.5 MG PO (20:27)
[2024-03-09] MEDS: HYDROPHOR TOPICAL (20:34)
[2024-03-09 22:48] LABS: Glucose - Point of Care 129 mg/dl (70-99)
[2024-03-09 23:40] VITALS: BP 158/82
[2024-03-10] MEDS: SYNTHROID 75 MCG PO (05:17)
[2024-03-10] MEDS: STERILE WATER FOR INJECTION 10 ML IV (05:49)
[2024-03-10] MEDS: ROCEPHIN 1000 MG IV (05:49)
[2024-03-10 07:23] LABS: Glucose - Point of Care 161 mg/dl (70-99)
[2024-03-10 08:07] LABS: Hematocrit 34.4 % (37.0-47.0); Hemoglobin 11.1 g/dL (12.0-16.0); Mean Corp Hgb Conc. 32.3 g/dL (33.0-37.0); Mean Corpuscular Hgb 30.5 pg (27.0-31.0); Mean Corpuscular Volume 94.5 fL (81.0-99.0); Mean Platelet Volume 8.3 fL (7.4-10.4); Platelet Count 356 10^3/uL (130-400); Red Blood Cell Count 3.64 10^6/uL (4.20-5.40); Red Cell Dist. Width 14.3 % (11.5-14.5); White Blood Cell Count 9.8 10^3/uL (4.8-10.8)
[2024-03-10 08:21] VITALS: BP 156/82
[2024-03-10] MEDS: NOVOLOG FLEXPEN-MODERATE RESISTANCE 1 UNITS SC (08:24)
[2024-03-10] MEDS: FLORASTOR 250 MG PO ×2 (08:25→20:36)
[2024-03-10] MEDS: LOW STRENGTH ASPIRIN 81 MG PO (08:25)
[2024-03-10] MEDS: VITAMIN C 500 MG PO ×2 (08:25→20:35)
[2024-03-10] MEDS: LASIX 20 MG PO (08:25)
[2024-03-10] MEDS: OCUVITE SOFTGEL 1 CAP PO ×2 (08:26→20:34)
[2024-03-10] MEDS: NORVASC 2.5 MG PO (08:26)
[2024-03-10] MEDS: KLOR-CON 20 MEQ PO ×2 (08:26→20:38)
[2024-03-10] MEDS: AMARYL 2 MG PO (08:26)
[2024-03-10] MEDS: ZOLOFT 50 MG PO (08:26)
[2024-03-10] MEDS: TYLENOL 650 MG PO ×3 (08:27→21:28)
[2024-03-10] MEDS: HEPARIN 5000 UNITS SC ×2 (08:27→20:36)
[2024-03-10] MEDS: THERAGRAN 1 TABLET PO (08:30)
[2024-03-10] MEDS: HYDROPHOR 1 APPLIC TOPICAL (08:30)
[2024-03-10 08:38] LABS: Blood Urea Nitrogen 12 mg/dl (7-17); Calcium 9.4 mg/dl (8.4-10.2); Carbon Dioxide 32 mmol/L (22-30); Chloride 98 mmol/L (98-107); Estimated Creatinine Clearance 55 ml/min; Glucose 146 mg/dl (70-99); Magnesium 1.8 mg/dl (1.6-2.3); Potassium 3.4 mmol/L (3.5-5.1); Sodium 137 mmol/L (135-145); eGFR > 60.00
[2024-03-10] MEDS: SAFETUSSIN DM (SUGAR/ALCOHOL FREE) 100 MG PO (08:42)
--- NOTE | 2024-03-10 09:54 | W.PN.HOSP.TC ---
Today's Communication/Plan
-
follow blood cultures until clear
Assessment / Plan
Assessment / Plan
pt is an 89 year old female
Weakness (with fall) likely secondary to Proteus UTI with bacteremia---WBC 11K, improved----cont rocephin--covid/flu negative--repeat blood cultures until clear
Subacute cough--likely cause for doxycycline on med list--chest x-ray report WNL--add robitussin
hypokalemia--replete
Chronic HFpEF without exacerbation--pro BNP not done in ED--resume lasix
History of pericardial effusion/History of recurrent pleural effusion
Essential hypertension--Continue amlodipine
Hyperlipidemia--Continue statin
Type 2 diabetes with neuropathy--cont glimepiride--Insulin sliding scale
Macular degeneration
Hypothyroidism--Continue levothyroxine
Osteoarthritis
Obesity--affects all aspects of care
Fibromyalgia/Restless leg syndrome--Continue gabapentin, pramipexole
Anxiety--Continue clonazepam, sertraline
Constipation--Continue bowel regimen
code status --DNR/DNI
DVT prophylaxis�heparin
Anticipated Discharge: 24 - 48 hours
Subjective/Interval History
-
Date of Service: March 10, 2024
pt cough improved
Objective Data
-
Labs:
Laboratory Results
03/10/24
07:09
WBC 9.8
Hgb 11.1 L
Hct 34.4 L
Plt Count 356
Sodium 137
Potassium 3.4 L
Chloride 98
Carbon Dioxide 32 H
BUN 12
Creatinine 0.3 L
Glucose 146 H
Calcium 9.4
Vital Signs:
max temp for 24 hours
03/09/24
23:40
Temp 98.1 F
Vital Signs
Temp Pulse Resp BP Pulse Ox
97.8 F 84 18 156/82 95
03/10/24 08:21 03/10/24 08:21 03/10/24 08:21 03/10/24 08:21 03/10/24 08:21
I&O
03/09/24 03/10/24 03/11/24
06:59 06:59 06:59
Intake Total 600 / 600 1500 / 1500
Balance 600 / 600 1500 / 1500
Review of Systems
-
All other systems: Reviewed and negative
Physical Exam
-
General: Well Developed, Well Nourished and No Apparent Distress
HEENT: Normocephalic, Atraumatic and Oxygen
Respiratory: Clear to Auscultation; Negative Wheezes or Rhonchi
Cardiac: Regular Rhythm and S1/S2; Negative Murmur
GI: Soft, Nontender, Nondistended and Normal Bowel Sounds
Musculoskeletal: No Clubbing, No Cyanosis and No Edema
Neuro: Awake
[2024-03-10] MEDS: KCL 40 MEQ PO (10:40)
[2024-03-10 11:50] LABS: Glucose - Point of Care 200 mg/dl (70-99)
[2024-03-10] MEDS: NOVOLOG FLEXPEN-MODERATE RESISTANCE 3 UNITS SC (12:18)
[2024-03-10 15:00] VITALS: BP 144/65
--- NOTE | 2024-03-10 15:39 | CM ---
Patient seen bedside.
PT recommending skilled rehab.
Patient was recently in the skilled rehab at [facility].
Patient would prefer home with therapy.
Discussed short term rehab with patient and she is reluctantly agreeable to referral for skilled rehab to [facility].
CM will continue to follow progress in PT to see if patient could possibly return home with VN.
Discussed with son.
Plan: skilled rehab vs home with VN
[2024-03-10 16:43] LABS: Glucose - Point of Care 121 mg/dl (70-99)
[2024-03-10] MEDS: NOVOLOG FLEXPEN-MODERATE RESISTANCE SC (16:58)
[2024-03-10] MEDS: TYLENOL PO (16:58)
[2024-03-10] MEDS: HYDROPHOR TOPICAL (20:38)
[2024-03-10 21:11] LABS: Glucose - Point of Care 239 mg/dl (70-99)
[2024-03-10] MEDS: LIPITOR 40 MG PO (21:27)
[2024-03-10] MEDS: MIRAPEX 0.5 MG PO (21:27)
[2024-03-10] MEDS: NEURONTIN 300 MG PO (21:27)
[2024-03-10] MEDS: KLONOPIN 0.125 MG PO (22:11)
[2024-03-10 23:41] VITALS: BP 137/74
[2024-03-11] MEDS: STERILE WATER FOR INJECTION 10 ML IV (05:47)
[2024-03-11] MEDS: ROCEPHIN 1000 MG IV (05:48)
[2024-03-11] MEDS: SYNTHROID 75 MCG PO (05:48)
[2024-03-11 07:39] VITALS: BP 162/83
[2024-03-11] MEDS: TYLENOL PO ×4 (08:28→12:38)
[2024-03-11 08:30] LABS: Glucose - Point of Care 139 mg/dl (70-99)
[2024-03-11] MEDS: NOVOLOG FLEXPEN-MODERATE RESISTANCE SC (08:52)
[2024-03-11] MEDS: HEPARIN 5000 UNITS SC ×2 (08:53→20:59)
[2024-03-11] MEDS: NORVASC 2.5 MG PO (08:54)
[2024-03-11] MEDS: LASIX 20 MG PO (08:54)
[2024-03-11] MEDS: LOW STRENGTH ASPIRIN 81 MG PO (08:54)
[2024-03-11] MEDS: VITAMIN C 500 MG PO ×2 (08:54→20:59)
[2024-03-11] MEDS: FLORASTOR 250 MG PO ×2 (08:54→21:00)
[2024-03-11] MEDS: AMARYL 2 MG PO (08:54)
[2024-03-11] MEDS: THERAGRAN 1 TABLET PO (08:54)
[2024-03-11] MEDS: KLOR-CON 20 MEQ PO ×2 (08:54→21:00)
[2024-03-11] MEDS: ZOLOFT 50 MG PO (08:54)
[2024-03-11] MEDS: HYDROPHOR TOPICAL ×2 (09:01→21:09)
[2024-03-11] MEDS: OCUVITE SOFTGEL PO (09:02)
[2024-03-11 09:09] LABS: Hematocrit 33.1 % (37.0-47.0); Hemoglobin 10.6 g/dL (12.0-16.0); Mean Corpuscular Hgb 30.5 pg (27.0-31.0); Mean Corpuscular Volume 95.4 fL (81.0-99.0); Mean Platelet Volume 8.2 fL (7.4-10.4); Platelet Count 404 10^3/uL (130-400); Red Blood Cell Count 3.47 10^6/uL (4.20-5.40); Red Cell Dist. Width 14.4 % (11.5-14.5); White Blood Cell Count 10.5 10^3/uL (4.8-10.8)
[2024-03-11 09:32] LABS: Blood Urea Nitrogen 14 mg/dl (7-17); Calcium 9.8 mg/dl (8.4-10.2); Carbon Dioxide 30 mmol/L (22-30); Chloride 100 mmol/L (98-107); Estimated Creatinine Clearance 55 ml/min; Glucose 140 mg/dl (70-99); Magnesium 1.9 mg/dl (1.6-2.3); Sodium 137 mmol/L (135-145); eGFR > 60.00
--- NOTE | 2024-03-11 12:07 | W.PN.HOSP.TC ---
Today's Communication/Plan
-
needs PT/OT
d/c planning
Assessment / Plan
Assessment / Plan
pt is an 89 year old female
Weakness (with fall) likely secondary to Proteus UTI with bacteremia---WBC 11K, improved----cont rocephin and change to keflex at d/c (treat for 14 days total since bacteremia), blood cultures negative--covid/flu negative
Subacute cough--likely cause for doxycycline on med list--chest x-ray report WNL--add robitussin
hypokalemia--replete
Chronic HFpEF without exacerbation--pro BNP not done in ED--resume lasix
History of pericardial effusion/History of recurrent pleural effusion
Essential hypertension--Continue amlodipine
Hyperlipidemia--Continue statin
Type 2 diabetes with neuropathy--cont glimepiride--Insulin sliding scale
Macular degeneration
Hypothyroidism--Continue levothyroxine
Osteoarthritis
Obesity--affects all aspects of care
Fibromyalgia/Restless leg syndrome--Continue gabapentin, pramipexole
Anxiety--Continue clonazepam, sertraline
Constipation--Continue bowel regimen
code status --DNR/DNI
DVT prophylaxis�heparin
Anticipated Discharge: Within 24 hours
Subjective/Interval History
-
Date of Service: March 11, 2024
pt doing well
Objective Data
-
Labs:
Laboratory Results
03/11/24
08:28
WBC 10.5
Hgb 10.6 L
Hct 33.1 L
Plt Count 404 H
Sodium 137
Potassium 4.0
Chloride 100
Carbon Dioxide 30
BUN 14
Creatinine 0.3 L
Glucose 140 H
Calcium 9.8
Vital Signs:
max temp for 24 hours
03/10/24
23:41
Temp 98.4 F
Vital Signs
Temp Pulse Resp BP Pulse Ox
98.2 F 86 16 162/83 97
03/11/24 07:39 03/11/24 07:39 03/11/24 07:39 03/11/24 07:39 03/11/24 07:39
I&O
03/10/24 03/11/24 03/12/24
06:59 06:59 06:59
Intake Total 1500 / 1500 960 / 960
Balance 1500 / 1500 960 / 960
Review of Systems
-
All other systems: Reviewed and negative
Physical Exam
-
General: Well Developed, Well Nourished and No Apparent Distress
HEENT: Normocephalic and Atraumatic
Respiratory: Clear to Auscultation; Negative Wheezes or Rhonchi
Cardiac: Regular Rhythm and S1/S2; Negative Murmur
GI: Soft, Nontender, Nondistended and Normal Bowel Sounds
Musculoskeletal: No Clubbing, No Cyanosis and No Edema
Neuro: Awake
[2024-03-11] MEDS: OCUVITE SOFTGEL 1 CAP PO ×2 (12:30→20:59)
[2024-03-11 12:34] LABS: Glucose - Point of Care 189 mg/dl (70-99)
[2024-03-11] MEDS: NOVOLOG FLEXPEN-MODERATE RESISTANCE 1 UNITS SC ×2 (12:35→16:19)
[2024-03-11] MEDS: SAFETUSSIN DM (SUGAR/ALCOHOL FREE) 100 MG PO (13:20)
[2024-03-11 14:39] VITALS: BP 153/78; PULSE 86; O2SAT 93
--- NOTE | 2024-03-11 14:42 | CM ---
Addendum entered by Janet Mott 03/11/24 15:39:
IMM completed.
Addendum entered by Janet Mott 03/11/24 14:53:
[facility]

Original Note:
Patient seen bedside with maryam Bruce.
PT recommending home with VN.
Patient was supposed to start with [facility] the day she was admitted and had them in the past.
Referral to [facility] via [facility], await acceptance.
Patient will need WC van transport, daughter Janis will pay, P# [phone].
Verified with daughter, patient from [facility] at [facility], will need numbers for report and Fax.
Plan: home: [facility] with [facility], will need WC van when medically stable.
[2024-03-11 15:39] VITALS: BP 143/69
[2024-03-11 15:48] VITALS: BMI 31.6
[2024-03-11 16:10] LABS: Glucose - Point of Care 165 mg/dl (70-99)
[2024-03-11] MEDS: TYLENOL 650 MG PO ×2 (16:18→21:08)
[2024-03-11] MEDS: KEFLEX 500 MG PO ×2 (16:27→21:08)
--- NOTE | 2024-03-11 16:28 | PTCARENOTE ---
Patient refusing to take Tylenol, because she does not want to take pain meds. Patient c/o low back pain 02/21. Daughter at bedside and now patient agreeable to take scheduled Tylenol.
[2024-03-11] MEDS: LIPITOR 40 MG PO (21:08)
[2024-03-11] MEDS: MIRAPEX 0.5 MG PO (21:08)
[2024-03-11] MEDS: NEURONTIN 300 MG PO (21:08)
[2024-03-11 21:27] LABS: Glucose - Point of Care 114 mg/dl (70-99)
[2024-03-11 23:26] VITALS: BP 143/70
[2024-03-12] MEDS: SYNTHROID 75 MCG PO (05:42)
[2024-03-12] MEDS: STERILE WATER FOR INJECTION IV (05:45)
[2024-03-12 06:00] VITALS: BMI 30.8
[2024-03-12 07:24] VITALS: BP 168/78
[2024-03-12 08:29] LABS: Glucose - Point of Care 180 mg/dl (70-99)
[2024-03-12] MEDS: NOVOLOG FLEXPEN-MODERATE RESISTANCE 1 UNITS SC (09:25)
[2024-03-12] MEDS: FLORASTOR 250 MG PO (09:26)
[2024-03-12] MEDS: VITAMIN C 500 MG PO (09:26)
[2024-03-12] MEDS: AMARYL 2 MG PO (09:26)
[2024-03-12] MEDS: HEPARIN 5000 UNITS SC (09:26)
[2024-03-12] MEDS: KLOR-CON 20 MEQ PO (09:26)
[2024-03-12] MEDS: KEFLEX 500 MG PO (09:27)
[2024-03-12] MEDS: THERAGRAN 1 TABLET PO (09:27)
[2024-03-12] MEDS: ZOLOFT 50 MG PO (09:27)
[2024-03-12] MEDS: TYLENOL 650 MG PO ×2 (09:27→12:27)
[2024-03-12] MEDS: LASIX 20 MG PO (09:27)
[2024-03-12] MEDS: OCUVITE SOFTGEL 1 CAP PO (09:27)
[2024-03-12] MEDS: LOW STRENGTH ASPIRIN 81 MG PO (09:27)
[2024-03-12] MEDS: NORVASC 2.5 MG PO (09:27)
--- NOTE | 2024-03-12 09:29 | W.DS.TRANS ---
DC Summary - [employer]
-
Discharge Instructions:
Sleep Apnea Risk Low
Discharge Diagnosis/Procedures Weakness due to Proteus mirabilis urinary tract
infection with bacteremia, subacute cough,
hypokalemia, chronic diastolic congestive heart
failure without exacerbation, history of
pericardial effusion, essential hypertension,
hyperlipidemia, type 2 diabetes mellitus with
neuropathy, macular degeneration, hypothyroidism
, osteoarthritis, obesity, fibromyalgia with
restless leg, anxiety, constipation
Diet Diabetic, Carb Controlled
Activity As tolerated
Driving Restrictions As prior to admission
Bathing Restrictions None
Other Services VN,PT,OT
Instructions:
Stand-Alone Forms:
Changes to Home Medications: Yes
Discharge Medications:
DC Medications w/original date entered in [employer]
pramipexole 0.25 mg tablet 0.5 mg PO HS Neurological Condition 10/18/18
sertraline 50 mg tablet 50 mg PO DAILY Depression 10/18/18
levothyroxine 75 mcg tablet (Synthroid) 75 mcg PO DAILY Thyroid 06/07/23
amlodipine 2.5 mg tablet 5 mg PO DAILY Blood Pressure 08/18/23
aspirin 81 mg chewable tablet 81 mg PO DAILY Blood Clot Prevention/Tx 08/18/23
polyethylene glycol 3350 17 gram oral powder packet (Miralax) 17 g PO DAILY PRN constipation 08/30/23
ascorbic acid (vitamin C) 500 mg tablet 500 mg PO BID Supplement 11/01/23
atorvastatin 40 mg tablet 40 mg PO HS High Cholesterol 11/01/23
clonazepam 0.125 mg disintegrating tablet 0.125 mg PO Q8H PRN anxiety 11/01/23
glimepiride 2 mg tablet 2 mg PO DAILY Diabetes 11/01/23
methyl salicylate 15 %-menthol 10 % topical cream (Muscle Rub) 1 applic topical Q6H PRN shoulder pain 11/01/23
potassium chloride 20 mEq oral packet (Klor-Con) 20 meq PO BID Electrolyte Repletion 11/01/23
melatonin 3 mg tablet 3 mg PO HS Sleep 01/24/24
vit C 250 mg-vit E 90 mg-zinc 40 mg-copper 1 [id number] capsule (PreserVision AREDS-2) 1 tab PO BID Supplement 01/24/24
white petrolatum-mineral oil topical cream 1 applic topical BID dry skin 01/24/24
Saccharomyces boulardii 250 mg capsule (Florastor) 250 mg PO BID #1 cap 02/08/24
acetaminophen 325 mg capsule (Tylenol) 650 mg (2 x 325 mg) PO QID #2 caps 02/08/24
furosemide 20 mg tablet (Lasix) 20 mg PO DAILY #1 tab 02/08/24
gabapentin 300 mg capsule 300 mg PO HS sleep/pain #10 caps 02/08/24
Lactobacillus acidophilus (Acidophilus capsule) 1 cap PO BID probiotic 03/08/24
estradiol 0.01% (0.1 mg/gram) vaginal cream (Estrace) 1 g vaginal .[id number] Hormonal Agent 03/08/24
hydromorphone 2 mg tablet 2 mg PO Q6HPRN PRN severe pain 03/08/24
insulin aspart U-100 100 unit/mL (3 mL) subcutaneous pen (Novolog FlexPen U-100 Insulin aspart) 0 unit SC AC Diabetes 03/08/24
sennosides 8.6 mg tablet (senna) 17.2 mg PO DAILYPRN PRN constipation 03/08/24
therapeutic multivitamin 1 tab PO DAILY Supplement 03/08/24
cephalexin 500 mg capsule 500 mg PO TID #30 caps 03/12/24
Home Medication Changes
cephalexin 500 mg capsule 500 mg PO TID #30 caps 03/12/24
Pending Results: No
--- NOTE | 2024-03-12 10:50 | CM ---
Addendum entered by Lacy Sutherland 03/12/24 11:16:
CM left another voicemail for [facility] to provide update with transportation time for patient.
Original Note:
CM reviewed chart, patient for discharge today. CM placed call to [facility] to inform patient is clear for discharge today, left voicemail.
CM spoke with patients daughter, Janis, provided transport number to call to provide payment for WC Van, transport time scheduled for 2:30 p.m.
Plan; [facility] with [facility], 2:30 p.m. WC Van transport.
[facility]
Report: [phone], ask for Personal Care

[facility]
--- NOTE | 2024-03-12 11:36 | W.DCSUMMARY ---
Discharge Summary
Discharge Data
Date of Admission: 03/08/24
Date of Discharge: 03/12/24
-
Pending Results: No
Hospital Course
89-year-old female who presented with weakness on date of admission with suspected UTI based on urinalysis results on initial presentation she was placed on empiric antibiotic coverage with ceftriaxone and blood culture sent that eventually grew out
Proteus both in the urine and the blood consistent with a UTI induced Proteus bacteremia/initial course of leukocytosis improved and now resolved hypokalemia was repleted prior history of chronic preserved EF heart failure without signs of
exacerbation no other medication management changes were undertaken for relation to her hyperlipidemia type 2 diabetes mellitus hypothyroidism normal her fibromyalgia restless leg syndrome and continue on gabapentin and pramipexole. She will be
continued full course of antibiotics for 14 to total 14 days which would be 10 days from time of her discharge with cephalexin 500 mg 3 times a day called into her local pharmacy.
Discharge Plan
-
Patient Disposition: Home with Home Care
Discharge Diagnosis/Procedures: Weakness due to Proteus mirabilis urinary tract infection with bacteremia, subacute cough, hypokalemia, chronic diastolic congestive heart failure without exacerbation, history of pericardial effusion, essential
hypertension, hyperlipidemia, type 2 diabetes mellitus with neuropathy, macular degeneration, hypothyroidism, osteoarthritis, obesity, fibromyalgia with restless leg, anxiety, constipation
Condition: Good
Diet: Diabetic, Carb Controlled
Activity: As tolerated
Driving Restrictions: As prior to admission
Bathing Restrictions: None
Other Services: VN, PT and OT
Referrals:
Manolo Dillon MD [Family Provider] - in less than 1 week
Prescriptions:
New
cephalexin 500 mg capsule
500 mg PO TID Qty: 30 0RF
Continued
pramipexole 0.25 MG tablet
0.5 mg PO HS
sertraline 50 MG tablet
50 mg PO DAILY
levothyroxine [Synthroid] 75 mcg Tablet
75 mcg PO DAILY
amlodipine 2.5 mg tablet
5 mg PO DAILY
Rx Instructions:
Hold for systolic BP <110
aspirin 81 mg tablet,chewable
81 mg PO DAILY
Hold Instructions: Resume on 03/07/24.
polyethylene glycol 3350 [Miralax] 17 gram Powder In Packet
17 g PO DAILY PRN (Reason: constipation)
atorvastatin 40 mg tablet
40 mg PO HS
glimepiride 2 mg tablet
2 mg PO DAILY
ascorbic acid (vitamin C) 500 mg Tablet
500 mg PO BID
clonazepam 0.125 mg tablet,disintegrating
0.125 mg PO Q8H PRN (Reason: anxiety)
Muscle Rub 15-10 % Cream
1 applic TOPICAL Q6H PRN (Reason: shoulder pain)
potassium chloride [Klor-Con] 20 mEq packet
20 meq PO BID
melatonin 3 mg Tablet
3 mg PO HS
white petrolatum-mineral oil Cream
1 applic TOPICAL BID
PreserVision AREDS-2 250-90-40-1 mg Capsule
1 tab PO BID
Hold Instructions: Resume on 02/15/24.
furosemide [Lasix] 20 mg tablet
20 mg PO DAILY Qty: 1 0RF
Saccharomyces boulardii [Florastor] 250 mg capsule
250 mg PO BID Qty: 1 0RF
gabapentin 300 mg capsule
300 mg PO HS Qty: 10 0RF
acetaminophen [Tylenol] 325 mg capsule
650 mg PO QID Qty: 2 0RF
sennosides [senna] 8.6 mg Tablet
17.2 mg PO DAILYPRN PRN (Reason: constipation)
therapeutic multivitamin Tablet
1 tab PO DAILY
estradiol [Estrace] 0.01 % (0.1 mg/gram) Cream
1 g VAGINAL .[id number]
Rx Instructions:
take from 03/08/24-03/22/24 then decrease to every tuesday and tuesday starting 03/23/24
Acidophilus Capsule
1 cap PO BID
insulin aspart U-100 [Novolog FlexPen U-100 Insulin] 100 unit/mL (3 mL) Insulin Pen
0 unit SC AC
Rx Instructions:
101-150=2units, 201-250=4units,251-300=6units
hydromorphone 2 mg tablet
2 mg PO Q6HPRN PRN (Reason: severe pain)
Discontinued
nitrofurantoin monohyd/m-cryst [Macrobid] 100 mg Capsule
100 mg PO BID
Patient Comments:
take from 03/07/24-03/14/24
Discharge Orders:
Discharge Patient (As Directed); Ordered 03/12/24
Ordered By: Caleb Alatorre
Discharge Date and Time
Print Language: UPPER SORBIAN
[2024-03-12 11:38] LABS: Glucose - Point of Care 255 mg/dl (70-99)
[2024-03-12] MEDS: NOVOLOG FLEXPEN-MODERATE RESISTANCE 5 UNITS SC (12:28)
[2024-03-12] MEDS: ULTRAM 25 MG PO (12:28)
[2024-03-12] MEDS: SAFETUSSIN DM (SUGAR/ALCOHOL FREE) 100 MG PO (12:44)
[2024-03-12] MEDS: HYDROPHOR TOPICAL (12:53)
--- NOTE | 2024-03-12 14:35 | PTCARENOTE ---
Patient AAOx3. Discharge paperwork read and reviewed with patient. IV access removed. Patient discharged back to [facility] via wheelchair van.
== END 2024-03-12 14:52 | disposition home health service (06) | DRG 872 ==
LOC: 4 WEST ACU 04:37
PROVIDERS: Internal Medicine; Nurse Practitioner; ADMITTING PHYSICIAN Hospitalist; ATTENDING PHYSICIAN Internal Medicine; EMERGENCY PHYSICIAN Emergency Medicine; FAMILY PHYSICIAN Internal Medicine Geriatric Medicine
DX: R78.81 Bacteremia (principal); N39.0 Urinary tract infection, site not specified; I50.32 Chronic diastolic (congestive) heart failure; Z11.52 Encounter for screening for COVID-19; Z66 Do not resuscitate; I11.0 Hypertensive heart disease with heart failure; E78.00 Pure hypercholesterolemia, unspecified; E03.9 Hypothyroidism, unspecified; E66.9 Obesity, unspecified; M79.7 Fibromyalgia; F41.9 Anxiety disorder, unspecified; K59.00 Constipation, unspecified; E11.40 Type 2 diabetes mellitus with diabetic neuropathy, unspecified; E87.6 Hypokalemia; Z79.82 Long term (current) use of aspirin; Z68.30 Body mass index [BMI] 30.0-30.9, adult
CPT/HCPCS: 51701; 70450; 71046; 80048; 80053; 81003; 81015; 82962; 83605; 83735; 85025; 85027; 87040; 87077; 87086; 87149; 87186; 87205; 87502; 87811; 93005; 97116; 97163; 97166; 97535; 99285

== ENCOUNTER → 2024-04-13 14:56 | Outpatient (REF) | payer OTHER, SELFPAY ==
[2024-04-13 20:27] LABS: Urine Albumin Negative (Neg - Trace); Urine Bilirubin Negative (Negative); Urine Character Slightly Cloudy (Clear); Urine Color Yellow; Urine Glucose Negative (Negative); Urine Ketone Negative (Negative); Urine Leukocyte 2+ (Negative); Urine Nitrite Positive (Negative); Urine Occult Blood 1+ (Negative); Urine Urobilinogen Negative (Neg - 1+)
[2024-04-13 21:17] LABS: Urine Bacteria Many (Negative); Urine White Cell >100 /HPF (0-5)
== END ==
LOC: OLABWIL 14:56
PROVIDERS: ATTENDING PHYSICIAN Physician Assistant Medical; FAMILY PHYSICIAN Internal Medicine Geriatric Medicine
DX: S72.352A Displaced comminuted fracture of shaft of left femur, initial encounter for closed fracture (principal)
CPT/HCPCS: 72170; 73552; 81003; 81015

== ENCOUNTER → 2024-05-07 09:51 | Outpatient (REF) | payer OTHER, SELFPAY ==
[2024-05-07 11:18] LABS: % Basophils 1.4 % (0-2); % Immature Granulocytes 0.2 % (0-0.5); % Lymphocytes 30.3 % (20.5-51.1); % Monocytes 9.1 % (1.7-9.3); Absolute Basophils 0.1 10^3/uL (0-0.2); Absolute Eosinophils 0.4 10^3/uL (0-0.7); Absolute Lymphocytes 1.8 10^3/uL (1.2-3.4); Absolute Monocytes 0.5 10^3/uL (0.1-0.6); Absolute Neutrophils 3.1 10^3/uL (1.4-6.5); Hematocrit 38.2 % (37.0-47.0); Mean Corp Hgb Conc. 31.4 g/dL (33.0-37.0); Mean Corpuscular Hgb 30.5 pg (27.0-31.0); Mean Platelet Volume 9.4 fL (7.4-10.4); Nucleated Red Blood Cells % 0 %; Platelet Count 232 10^3/uL (130-400); Red Blood Cell Count 3.94 10^6/uL (4.20-5.40); Red Cell Dist. Width 14.3 % (11.5-14.5); White Blood Cell Count 5.8 10^3/uL (4.8-10.8)
[2024-05-07 11:33] LABS: ALT (SGPT) 22 U/L (0-35); AST (SGOT) 25 U/L (14-36); Albumin 4.3 g/dl (3.5-5.0); Alkaline Phosphatase 190 U/L (38-126); Blood Urea Nitrogen 22 mg/dl (7-17); Calcium 10.1 mg/dl (8.4-10.2); Carbon Dioxide 27 mmol/L (22-30); Chloride 105 mmol/L (98-107); Glucose 115 mg/dl (70-99); Sodium 140 mmol/L (135-145); Total Bilirubin 0.4 mg/dl (0.2-1.3); Total Protein 6.8 g/dl (6.3-8.2); eGFR > 60.00
[2024-05-07 11:36] LABS: NT-proBNP 37.4 pg/ml
== END ==
LOC: OLABWPC 09:51
PROVIDERS: ATTENDING PHYSICIAN Internal Medicine Geriatric Medicine
DX: I50.22 Chronic systolic (congestive) heart failure (principal); J90 Pleural effusion, not elsewhere classified; E11.65 Type 2 diabetes mellitus with hyperglycemia; I10 Essential (primary) hypertension
CPT/HCPCS: 36415; 80053; 83880; 85025

== ENCOUNTER → 2024-06-05 09:25 | Outpatient (REF) | payer OTHER, SELFPAY ==
[2024-06-05 12:38] LABS: % Basophils 1.1 % (0-2); % Eosinophils 4.9 % (0-6); % Immature Granulocytes 0.2 % (0-0.5); % Lymphocytes 24.4 % (20.5-51.1); % Monocytes 10.4 % (1.7-9.3); Absolute Basophils 0.1 10^3/uL (0-0.2); Absolute Eosinophils 0.3 10^3/uL (0-0.7); Absolute Lymphocytes 1.5 10^3/uL (1.2-3.4); Absolute Monocytes 0.6 10^3/uL (0.1-0.6); Absolute Neutrophils 3.7 10^3/uL (1.4-6.5); Hematocrit 33.4 % (37.0-47.0); Hemoglobin 10.7 g/dL (12.0-16.0); Mean Corpuscular Hgb 30.2 pg (27.0-31.0); Mean Corpuscular Volume 94.4 fL (81.0-99.0); Mean Platelet Volume 9.3 fL (7.4-10.4); Nucleated Red Blood Cells % 0 %; Platelet Count 227 10^3/uL (130-400); Red Blood Cell Count 3.54 10^6/uL (4.20-5.40); Red Cell Dist. Width 14.2 % (11.5-14.5); White Blood Cell Count 6.2 10^3/uL (4.8-10.8)
[2024-06-05 13:24] LABS: AST (SGOT) 24 U/L (14-36); Blood Urea Nitrogen 20 mg/dl (7-17); Calcium 9.8 mg/dl (8.4-10.2); Carbon Dioxide 26 mmol/L (22-30); Glucose 117 mg/dl (70-99); Potassium 4.1 mmol/L (3.5-5.1); Total Bilirubin 0.3 mg/dl (0.2-1.3); Total Protein 6.5 g/dl (6.3-8.2); eGFR > 60.00
[2024-06-05 13:39] LABS: ALT (SGPT) 22 U/L (0-35); Alkaline Phosphatase 166 U/L (38-126); Chloride 104 mmol/L (98-107); Sodium 140 mmol/L (135-145)
== END ==
LOC: OLABWPC 09:25
PROVIDERS: ATTENDING PHYSICIAN Internal Medicine Geriatric Medicine
DX: I10 Essential (primary) hypertension (principal); E11.40 Type 2 diabetes mellitus with diabetic neuropathy, unspecified
CPT/HCPCS: 80053; 83880; 85025

== ENCOUNTER → 2024-07-05 13:01 | Outpatient (REF) | payer OTHER, SELFPAY | LOC: RAD 13:01 | PROVIDERS: ATTENDING PHYSICIAN Nurse Practitioner Family; FAMILY PHYSICIAN Internal Medicine Geriatric Medicine | DX: I50.22 Chronic systolic (congestive) heart failure (principal); J90 Pleural effusion, not elsewhere classified; E11.65 Type 2 diabetes mellitus with hyperglycemia; I10 Essential (primary) hypertension | CPT/HCPCS: 93970 ==

== ENCOUNTER → 2024-07-26 12:04 | Outpatient (REF) | payer OTHER, SELFPAY ==
[2024-07-26 13:39] LABS: Urine Albumin Trace (Neg - Trace); Urine Bilirubin Negative (Negative); Urine Character Slightly Cloudy (Clear); Urine Color Yellow; Urine Glucose Negative (Negative); Urine Ketone Negative (Negative); Urine Leukocyte 2+ (Negative); Urine Nitrite Positive (Negative); Urine Occult Blood 3+ (Negative); Urine Urobilinogen Negative (Neg - 1+)
[2024-07-26 13:50] LABS: Urine Bacteria Moderate (Negative); Urine White Cell 50-60 /HPF (0-5)
== END ==
LOC: OLABWPC 12:04
PROVIDERS: ATTENDING PHYSICIAN Internal Medicine Geriatric Medicine
DX: R31.9 Hematuria, unspecified (principal)
CPT/HCPCS: 81003; 81015; 87086; 87088; 87186

== ENCOUNTER → 2024-08-31 11:40 | Outpatient (REF) | payer OTHER, SELFPAY ==
[2024-08-31 12:39] LABS: % Basophils 1.4 % (0-2); % Eosinophils 5.8 % (0-6); % Immature Granulocytes 0.2 % (0-0.5); % Lymphocytes 24.7 % (20.5-51.1); % Monocytes 8.5 % (1.7-9.3); % Neutrophils 59.4 % (42.2-75.2); Absolute Basophils 0.1 10^3/uL (0-0.2); Absolute Eosinophils 0.3 10^3/uL (0-0.7); Absolute Lymphocytes 1.5 10^3/uL (1.2-3.4); Absolute Monocytes 0.5 10^3/uL (0.1-0.6); Absolute Neutrophils 3.5 10^3/uL (1.4-6.5); Hematocrit 36.6 % (37.0-47.0); Hemoglobin 11.8 g/dL (12.0-16.0); Mean Corp Hgb Conc. 32.2 g/dL (33.0-37.0); Mean Corpuscular Hgb 30.3 pg (27.0-31.0); Mean Corpuscular Volume 94.1 fL (81.0-99.0); Mean Platelet Volume 9.6 fL (7.4-10.4); Nucleated Red Blood Cells % 0 %; Platelet Count 222 10^3/uL (130-400); Red Blood Cell Count 3.89 10^6/uL (4.20-5.40); Red Cell Dist. Width 13.9 % (11.5-14.5); White Blood Cell Count 5.9 10^3/uL (4.8-10.8)
[2024-08-31 12:58] LABS: ALT (SGPT) 24 U/L (0-35); AST (SGOT) 28 U/L (14-36); Albumin 4.2 g/dl (3.5-5.0); Alkaline Phosphatase 145 U/L (38-126); Blood Urea Nitrogen 21 mg/dl (7-17); Calcium 9.7 mg/dl (8.4-10.2); Carbon Dioxide 27 mmol/L (22-30); Chloride 104 mmol/L (98-107); Glucose 142 mg/dl (70-99); Phosphorus 3.7 mg/dl (2.5-4.5); Potassium 4.4 mmol/L (3.5-5.1); Sodium 142 mmol/L (135-145); Total Bilirubin 0.4 mg/dl (0.2-1.3); Total Protein 6.6 g/dl (6.3-8.2); eGFR > 60.00
== END ==
LOC: OLABWPC 11:40
PROVIDERS: ATTENDING PHYSICIAN Internal Medicine Geriatric Medicine
DX: M81.0 Age-related osteoporosis without current pathological fracture (principal); F33.40 Major depressive disorder, recurrent, in remission, unspecified; D44.9 Neoplasm of uncertain behavior of unspecified endocrine gland; E55.9 Vitamin D deficiency, unspecified; I50.30 Unspecified diastolic (congestive) heart failure; R00.2 Palpitations; Z13.31 Encounter for screening for depression; E11.65 Type 2 diabetes mellitus with hyperglycemia; Z99.89 Dependence on other enabling machines and devices; E78.5 Hyperlipidemia, unspecified; E03.9 Hypothyroidism, unspecified
CPT/HCPCS: 36415; 80053; 80069; 85025